=== PATIENT | female | born 1940 | race Caucasian/White ===

== ENCOUNTER → 2017-07-08 | Outpatient (CLI) | payer OTHER ==
[~2017-07-08] MED LIST: ACCUPRIL10 MG PO; ASPIR 8181 MG PO; ATORVASTATIN CA40 MG; ATORVASTATIN CA40 MG PO; BAYER BACK & B1 EACH; BAYER BACK & B1 EACH PO; EFFIENT10 MG PO; LIPITOR 20 MG T20 M1 PO; LOPRESSOR25 PO; NITROGLYCERIN0.4 MG SUBLING; RANEXA500 MG; TOPROL XL25 MG PO; ZETIA10 MG PO
== END ==
LOC: M.RAD 13:09
DX: M19.90 Unspecified osteoarthritis, unspecified site (principal); Z78.0 Asymptomatic menopausal state

== ENCOUNTER → 2018-05-10 | Outpatient (CLI) | payer OTHER ==
--- NOTE | 2018-05-10 10:45 | 2DMMODE ---
[place] [address] 2 D/M-MODE ECHOCARDIOGRAM Name: FANTASMA RICO Room: [facility]#: [id number] Admission: 05/10/18 Attend Phys: Merary Chin Discharge: Date of : 40 Date of Service: 05/10/18 1045 Report #: [id number] THIS REPORT FOR: //name// APPROVED REPORT Study performed: 05/10/2018 09:06:51 EXAM: Comprehensive 2D, Doppler, and color-flow Echocardiogram Patient Location: Out-Patient Status: routine BSA: 1.92 HR: 62 bpm BP: 130/80 mmHg Other Information Study Quality: Good Indications CAD Hypertension/HDD 2D Dimensions IVSd: 10.40 (7-11mm) LVOT Diam: 20.29 (18-24mm) LVDd: 42.29 mm PWd: 9.81 (7-11mm) Ascending Ao: 28.68 (22-36mm) LVDs: 23.65 (25-40mm) Aortic Root: 29.84 mm Volumes Left Atrial Volume (Systole) LA ESV Index: 10.60 mL/m2 Aortic Valve AoV Peak Mandeep.: 1.54 m/s AO Peak Gr.: 9.49 mmHg LVOT Max P.79 mmHg AO Mean Gr.: 4.64 mmHg LVOT Mean P.55 mmHg LVOT Max V: 1.20 m/s AO V2 VTI: 30.08 cm LVOT Mean V: 0.71 m/s KEN (VTI): 2.88 cm2 LVOT V1 VTI: 26.83 cm Mitral Valve E/A Ratio: 0.81 MV Decel. Time: 217.55 ms MV E Max Mandeep.: 0.72 m/[place] [address] 2 D/M-MODE ECHOCARDIOGRAM Name: FANTASMA RICO Room: [facility]#: [id number] Admission: 05/10/18 Attend Phys: Merary Chin Discharge: Date of : 40 Date of Service: 05/10/18 1045 Report #: [id number] MV PHT: 63.09 ms MVA (PHT): 3.49 cm2 TDI E/Lateral E': 12.00 E/Medial E': 9.00 Medial E' Mandeep.: 0.08 m/s Lateral E' Mandeep.: 0.06 m/s Pulmonary Valve PV Peak Mandeep.: 0.91 m/s PV Peak Gr.: 3.29 mmHg Tricuspid Valve RAP Estimate: 5.00 mmHg TR Peak Gr.: 18.83 mmHg RVSP: 23.83 mmHg PA Pressure: 23.83 mmHg Left Ventricle The left ventricle is normal size. There is normal LV segmental wall motion. There is normal left ventricular wall thickness. Left ventricular systolic function is normal. The left ventricular ejection fraction is within the normal range. LVEF is 55-60%. Grade I - abnormal relaxation pattern. Right Ventricle The right ventricle is normal size. The right ventricular systolic function is normal. Atria The left atrium size is normal. The right atrium size is normal. Aortic Valve The aortic valve is normal in structure. No aortic regurgitation is present. There is no aortic valvular stenosis. Mitral Valve There is mild mitral annular calcification. There is no mitral valve regurgitation noted. No evidence of mitral valve stenosis. Tricuspid Valve The tricuspid valve is normal in structure. Mild tricuspid regurgitation. Pulmonic Valve The pulmonary valve is normal in structure. Mild [place] [address] 2 D/M-MODE ECHOCARDIOGRAM Name: FANTASMA RICO Room: [facility]#: [id number] Admission: 05/10/18 Attend Phys: Merary Chin Discharge: Date of : 40 Date of Service: 05/10/18 1045 Report #: [id number] Great Vessels The aortic root is normal in size. IVC is normal in size and collapses >50% with inspiration. Pericardium There is no pericardial effusion. <Conclusion> LVEF is 55-60%. <ELECTRONICALLY SIGNED> By: Pillo Egan MD, FACC 05/10/18 1045 44 Pillo Egan MD, FACC /INF
== END ==
LOC: M.CRD 08:42
DX: I37.1 Nonrheumatic pulmonary valve insufficiency (principal); I07.1 Rheumatic tricuspid insufficiency; I34.8 Other nonrheumatic mitral valve disorders; I10 Essential (primary) hypertension; I25.10 Atherosclerotic heart disease of native coronary artery without angina pectoris

== ENCOUNTER 2018-06-10 12:44 | Emergency (ER) | payer OTHER ==
[~2018-06-10] VITALS: Ht 167.6 cm; Wt 83.9 kg
[2018-06-10] MEDS ORDERED: ISOSORBIDE DINI30 MG PO (13:30)
[2018-06-10] MEDS ORDERED: PLAVIX 75 MG TA75 M1 PO (13:31)
[2018-06-10 13:42] LABS: ABSOLUTE BASOPHILS 0.1 thou/uL (0.0-0.2); ABSOLUTE EOSINOPHILS 0.1 thou/uL (0.0-0.7); ABSOLUTE LYMPHOCYTES 1.4 thou/uL (0.8-5.3); ABSOLUTE MONOCYTES 0.4 thou/uL (0.0-1.2); ABSOLUTE NEUTROPHILS 4.7 thou/uL (1.6-8.1); BASOPHILS 0.9 %; EOSINOPHILS 1.2 %; HEMATOCRIT 42.6 % (37.0-47.0); HEMOGLOBIN 14.4 gm/dL (12.0-15.0); LYMPHOCYTES 20.7 %; MCH 30.8 pg (26.0-34.0); MCHC 33.9 g/dL (28.0-37.0); MCV 90.8 fL (80.0-100.0); MONOCYTES 6.1 %; MPV 7.8 fl. (7.2-11.1); NUCLEATED RBCS 0 /100WBC; PLATELET COUNT* 261 thou/uL (150-400); POLYS 71.1 %; RBC 4.68 mil/uL (4.20-5.00); RDW-CV 13.6 % (10.5-14.5); WBC 6.6 thou/uL (4.0-11.0)
[2018-06-10 13:51] LABS: ANION GAP 7 mmol/L (7-16); BUN 22 mg/dL (7-18); CALCIUM 9.1 mg/dL (8.5-10.1); CHLORIDE 106 mmol/L (98-107); CO2 30 mmol/L (21-32); CREATININE 1.3 mg/dL (0.6-1.3); GLUCOSE 131 mg/dL (70-99); SODIUM 143 mmol/L (136-145)
[2018-06-10 13:54] LABS: APTT 25.9 Seconds (25.0-31.3); PROTIME 10.2 Seconds (9.20-11.50)
[2018-06-10 14:02] LABS: ALKALINE PHOSPHATASE 103 U/L (46-116); LIPASE 228 U/L (73-393); NT-PRO BRAIN NAT PEPTIDE 156 pg/mL (<300); SGOT 16 U/L (15-37); SGPT 16 U/L (30-65); TOTAL BILIRUBIN 0.2 mg/dL (<0.1-1.0); TOTAL PROTEIN 8.1 g/dL (6.4-8.2); TROPONIN-I LEVEL <0.06 ng/mL (<0.06)
--- NOTE | 2018-06-10 15:03 | EKG ---
[place] [address] ELECTROCARDIOGRAM REPORT Name: TRISHAFANTASMA HANSA Room: [facility]#: [id number] Admission: 06/10/18 Attend Phys: Discharge: Date of : 40 Report #: [id number] THIS REPORT FOR: //name// [facility] ED Test Date: 2018-06-10 Test Time: 12:51:32 Pat Name: FANTASMA RICO Department: Room: Gender: F Body Joiner: Shira RAJAN : 1940 Requested By: Verona Goodwin Order Number: [id number] MD: Chapo Ferreira Measurements Intervals [place] Rate: 73 P: 43 LA: 161 QRS: 25 QRSD: 87 T: 16 QT: 375 QTc: 414 Interpretive Statements Sinus rhythm Compared to ECG 08/02/2016 03:07:40 No significant changes Electronically Signed On 06-10-2018 15:02:54 FLEET SERVICE CLERK by Chapo Ferreira [email or web address] <ELECTRONICALLY SIGNED> By: Chapo Ferreira MD, [facility] 06/10/18 1502 125 125 Chapo Ferreira MD, FACC /EPI
[2018-06-10 16:05] VITALS: BP 131/65
== END 2018-06-10 16:06 | disposition home or self-care (01) ==
LOC: M.ERS 12:44
PROVIDERS: Personal Emergency Response Attendant
DX: I20.8 Other forms of angina pectoris (principal); F90.9 Attention-deficit hyperactivity disorder, unspecified type; Z90.710 Acquired absence of both cervix and uterus; Z90.49 Acquired absence of other specified parts of digestive tract; Z95.5 Presence of coronary angioplasty implant and graft; Z88.1 Allergy status to other antibiotic agents; Z88.8 Allergy status to other drugs, medicaments and biological substances

== ENCOUNTER 2018-06-14 09:12 | Observation (INO) | payer OTHER ==
[~2018-06-14] VITALS: Ht 152.4 cm; Wt 84.4 kg
--- NOTE | ~2018-06-14 | H ---
[address] [address] HISTORY AND PHYSICAL Name: FANTASMA RICO Room: [address] Alpesh Gottlieb#: [id number] Admission: 06/14/18 Attend Phys: Loco Grande MD, Discharge: 06/15/18 Date of : 40 Report #: [id number] THIS REPORT FOR: //name// Please refer to the History and Physical performed in the physician's office. By: 1244Medical Records Staff [place] /DOUG
[2018-06-14 08:00] VITALS: BP 132/60
[~2018-06-14 09:12] MED LIST changes: -BAYER BACK & B1 EACH; +ISOSORBIDE DINI30 MG PO; +PLAVIX 75 MG TA75 M1 PO
[2018-06-14 09:39] VITALS: BP 149/66
[2018-06-14 10:32] LABS: ANION GAP 9 mmol/L (7-16); BUN 25 mg/dL (7-18); CHLORIDE 107 mmol/L (98-107); CO2 26 mmol/L (21-32); CREATININE 1.3 mg/dL (0.6-1.3); GLUCOSE 94 mg/dL (70-99); SODIUM 142 mmol/L (136-145)
[2018-06-14 10:34] LABS: APTT 26.1 Seconds (25.0-31.3); PROTIME 10.5 Seconds (9.20-11.50)
[2018-06-14 10:36] LABS: ALBUMIN 3.7 g/dL (3.4-5.0); ALKALINE PHOSPHATASE 88 U/L (46-116); CHOLESTEROL 167 mg/dL (<200); HDL CHOLESTEROL 45 mg/dL (>40); LDL CHOLESTEROL 103 mg/dL (<100); SGPT 15 U/L (30-65); TC:HDL 3.7 Ratio (Not establshd); TOTAL BILIRUBIN 0.3 mg/dL (<0.1-1.0); TOTAL PROTEIN 7.5 g/dL (6.4-8.2); TRIGLYCERIDE 95 mg/dL (<150); VLDL 19 mg/dL (<40)
[2018-06-14 10:37] LABS: POTASSIUM 4.9 mmol/L (3.5-5.1); SERUM ASSESSMENT Clear; SGOT 22 U/L (15-37)
--- NOTE | 2018-06-14 15:35 | CARD ---
[address] [address] CARDIAC CATH REPORT Name: FANTASMA RICO Room: [address] Alpesh Gottlieb#: [id number] Admission: 06/14/18 Attend Phys: Loco Grande MD, Discharge: Date of : 40 Report #: [id number] THIS REPORT FOR: //name// APPROVED REPORT Study performed: 06/14/2018 10:58:57 Patient Details The patient is a 77 year-old female Event Personnel Vashti Riggs RN, Loco Grande Academic Advisement Director, Sana Reyes Monitor, Hay Rendon (Ryan) Kristel Baron Tina RN Nut Sorter, Adithya Chou Monitor Procedures Performed Left heart catheterization left ventriculography selective coronary arteriography and percutaneous coronary intervention to the proximal circumflex Indication Unstable angina Risk Factors Hypercholesterolemia, Hypertension Previous Procedures/Diagnoses Previous PCI Admission/Lab Medications/Medications given during procedure Aspirin, Platelet Aff. Inhib., Angiomax bolus and infusion Procedure Narrative The patient was brought electively to the Cardiac Catheterization Laboratory and was prepped and draped in a sterile manner. The right femoral was infiltrated with 2% Lidocaine subcutaneous anesthesia. A [place] 6 FR sheath was inserted into the . Coronary angiography was performed using coronary diagnostic catheters. The right coronary system was accessed and visualized with a Diagnostic - JR4 catheter. The left coronary system was accessed and visualized with a Diagnostic - JL4 catheter. The left ventricle was accessed and visualized with a Diagnostic - PIG catheter. Left ventricular/Aortic Valve gradient assessed via catheter pullback. Pre-demployment femoral angiogram was performed . Closure device [place] [address] CARDIAC CATH REPORT Name: TRISHAFANTASMA HANSA Room: [address] Alpesh Gottlieb#: [id number] Admission: 06/14/18 Attend Phys: Loco Grande MD, Discharge: Date of : 40 Report #: [id number] Angioseal STS 6Fr. The patient tolerated the procedure well and there were no complications associated with the procedure. There was no hematoma. Intraoperative Conscious Sedation Sedation start time: 1136 Case end Time: 1229 Fentanyl 25 mcg Versed 2 mg Fluoro Time: 8.4 minutes Dose: DAP [id number] cGycm2 1612 mGy Coronary Angiography The patient's coronary anatomy is right dominant. Diagnostic Cath Left Main 40 Percent distal narrowing LAD Widely patent proximal LAD and first diagonal stenosis with 30% mid LAD narrowing Circumflex 80% ostial and proximal circumflex stenosis with calcification Right Coronary Dominant vessel with 30% mid vessel narrowing Left Ventriculography The left ventricle is normal in size with normal contractility. The left ventricular ejection fraction is estimated to be 65%. Left ventricular wall motion abnormalities are not present. There is no mitral insufficiency. Hemodynamics The aortic pressure is 144/60 mmHg with a mean of 94 mmHg. The left ventricular pressure is 147/4 mmHg with a mean of mmHg. The left ventricular end diastolic pressure is 17 mmHg. There was no gradient across the aortic valve upon pullback. PCI Technique Lesion Anticoagulation was achieved with Angiomax. Patient was preloaded with Angiomax IV 13 mg per kg. Percutaneous coronary intervention was performed on the proximal circumflex artery segment. The lesion stenosis prior to intervention was 80% with TIFFANIE 3 flow. A 6F XB LAD 3.5 Guide Catheter was used to engage the ostium. A IG: BMW 190cm Interventional Guidewire was used to cross the lesion. BALLOON DILATION A Balloon catheter Trek RX 2.5 X 12 was inserted and inflated up to 8.00atm for 10seconds. Additional Inflation: 10.00atm [place] [address] CARDIAC CATH REPORT Name: FANTASMA RICO HANSA Room: [address]#: [id number] Admission: 06/14/18 Attend Phys: Loco Grande MD, Discharge: Date of : 40 Report #: [id number] 15seconds. STENT DEPLOYMENT A stent Xience Zaira 2.5X18mm was inserted and inflated up to 10.00atm for 11seconds. Additional Inflation: 14.00atm for 7seconds. Additional Inflation: 16.00atm for 10seconds. Final angiography reveals 0 % stenosis with TIFFANIE 3 flow. Conclusion #1 significant coronary artery disease characterized by the following: A 40% distal left main coronary artery narrowing B widely patent proximal LAD and first diagonal stents with 30% mid LAD narrowing C prominent though nondominant circumflex with 80% tubular calcified proximal stenosis D dominant right coronary artery 30% mid vessel narrowing #2 normal left ventricular systolic function, estimated ejection fraction being 65% #3 modest elevation of left ventricular end-diastolic pressure at rest #4 successful percutaneous coronary intervention with deployment of a drug-eluting stent at the site of 80% proximal circumflex stenosis with 0% residual narrowing and TIFFANIE-3 flow the distal vessel Recommendations Cardiac Risk Reduction Program Aggressive Medical Therapy Medications Administered Aspirin (any) [place] [address] CARDIAC CATH REPORT Name: FANTASMA RICO HANSA Room: [address] Bull#: [id number] Admission: 06/14/18 Attend Phys: Loco Grande MD, Discharge: Date of : 40 Report #: [id number] Diagnostic Cath Approved by: Loco Grande MD Date/Time: 06/14/2018 15:34:39 <ELECTRONICALLY SIGNED> By: Loco Grande MD, [facility] 06/14/18 1535 1535 1535John Deb Grande MD, FACC /INF
[2018-06-14 16:00] VITALS: BP 138/63
--- NOTE | 2018-06-14 16:32 | EKG ---
[place] [address] ELECTROCARDIOGRAM REPORT Name: TRISHAFANTASMA JOY Room: [address] M.R.#: [id number] Admission: 06/14/18 Attend Phys: Loco Grande MD, Discharge: Date of : 40 Report #: [id number] THIS REPORT FOR: //name// [facility] Test Date: 2018-06-14 Test Time: 10:03:42 Pat Name: FANTASMA RICO Department: Room: [facility] Gender: F Head Refrigeration Engineer: BRANDAN : 1940 Requested By: Loco Grande Order Number: [id number] Teri MD: Loco Grande Measurements Intervals [place] Rate: 61 P: 35 DC: 168 QRS: 20 QRSD: 87 T: 16 QT: 399 QTc: 402 Interpretive Statements Sinus rhythm Compared to ECG 06/10/2018 12:51:32 No significant changes Electronically Signed On 06-14-2018 16:32:31 OFFICE SERVICES REPRESENTATIVE by Loco Grande [email or web address] <ELECTRONICALLY SIGNED> By: Loco Grande MD, [facility] 06/14/18 1632 1003 1003 Loco Grande MD, FACC /EPI
--- NOTE | 2018-06-14 16:33 | EKG ---
[place] [address] ELECTROCARDIOGRAM REPORT Name: FANTASMA RICO Room: [address] M.R.#: [id number] Admission: 06/14/18 Attend Phys: Loco Grande MD, Discharge: Date of : 40 Report #: [id number] THIS REPORT FOR: //name// [facility] Test Date: 2018-06-14 Test Time: 13:34:35 Pat Name: FANTASMA RICO Department: Room: [facility] Gender: F Desizing Machine Back Tender: : 1940 Requested By: Loco Grande Order Number: [id number] Teri MD: Loco Grande Measurements Intervals [place] Rate: 64 P: 40 GA: 177 QRS: 33 QRSD: 91 T: 13 QT: 400 QTc: 413 Interpretive Statements Sinus rhythm Compared to ECG 06/10/2018 12:51:32 No significant changes Electronically Signed On 06-14-2018 16:33:27 BRANCH ASSOCIATE by Loco Grande [email or web address] <ELECTRONICALLY SIGNED> By: Loco Grande MD, [facility] 06/14/18 1633 1334 33 Loco Grande MD, FACC /EPI
[2018-06-14 16:47] VITALS: BP 149/66
[2018-06-14] MEDS ORDERED: IMDUR 30 MG TAB30 M1 PO (19:34)
[2018-06-14] MEDS ORDERED: VITAMIN D3400 UNIT PO (19:36)
[2018-06-14 20:00] VITALS: BP 132/60
[2018-06-14 23:49] VITALS: BP 123/51
[2018-06-15] VITALS (7 sets, daily range): BP systolic 119–149; BP diastolic 59–66
--- NOTE | 2018-06-15 05:12 | NUR ---
ASSUMED PT CARE @1930. ALERT AND ORIENTED X4. VSS. AUDIT MACHINE OPERATOR IN PLACE, TRACING SR. COMPLAINED OF 5/10 BACK PAIN THAT WAS RELIEVED BY TYLENOL AND REPOSITIONING. POST CATH SITE INTACT AND DRY. SAYS CHEST FEELS A LITTLE TENDER. WAS MOSTLY ASLEEP THROUGH OUT THE NIGHT. CALL LIGHT IN PLACE. HOURLY ROUNDING DONE FOR SAFETY.
[2018-06-15 05:16] LABS: HEMATOCRIT 36.6 % (37.0-47.0); HEMOGLOBIN 12.4 gm/dL (12.0-15.0); MCH 31.4 pg (26.0-34.0); MCHC 33.9 g/dL (28.0-37.0); MCV 92.4 fL (80.0-100.0); MPV 7.9 fl. (7.2-11.1); RBC 3.96 mil/uL (4.20-5.00); RDW-CV 13.4 % (10.5-14.5)
[2018-06-15 05:37] LABS: ALBUMIN 3.2 g/dL (3.4-5.0); CALCIUM 8.3 mg/dL (8.5-10.1); CREATININE 1.2 mg/dL (0.6-1.3); POTASSIUM 4.4 mmol/L (3.5-5.1); TOTAL BILIRUBIN 0.4 mg/dL (<0.1-1.0); TOTAL PROTEIN 5.9 g/dL (6.4-8.2); TROPONIN-I LEVEL 0.26 ng/mL (<0.06)
--- NOTE | 2018-06-15 10:42 | NUR ---
ASSUMED PT CARE REPORT RECEIVED FROM NURSE ;VSS. NO COMPLAINT. IV FLUID STOPPED ORDERED. PT READY FOR DC DC INSTRUCTIONS GIVEN. PT NOW IN SHOWER. PT OWN MEDICATIONS GIVEN BACK TO PT. LOPRESSOR AND LISINOPRIL GIVEN THIS AM AAS ORDERED. WILL DC AFTER SHOWER.
--- NOTE | 2018-06-15 17:00 | EKG ---
[place] [address] ELECTROCARDIOGRAM REPORT Name: FANTASMA RICO Room: [address] M.R.#: [id number] Admission: 06/14/18 Attend Phys: Loco Grande MD, Discharge: 06/15/18 Date of : 40 Report #: [id number] THIS REPORT FOR: //name// [facility] Test Date: 2018-06-15 Test Time: 03:17:30 Pat Name: FANTASMA RICO Department: Room: [facility] Gender: F Web Site Manager: JCRUZ : 1940 Requested By: Loco Grande Order Number: [id number] Teri MD: Familia Gomes Measurements Intervals [place] Rate: 62 P: 32 [place]: 173 QRS: 24 QRSD: 89 T: 22 QT: 405 QTc: 412 Interpretive Statements Sinus rhythm Compared to ECG 06/14/2018 13:34:35 No significant changes Electronically Signed On 06-15-2018 17:00:18 ANIMAL HOSPITAL CLERK by Familia Gomes [email or web address] <ELECTRONICALLY SIGNED> By: Familia Gomes MD, [facility] 06/15/18 1700 6 Familia Gomes MD, FAC /EPI
--- NOTE | 2018-06-17 16:57 | D ---
[address] [address] DISCHARGE SUMMARY Name: TRISHAFANTASMA HANSA Room: [address] Alpesh Gottlieb#: [id number] Admission: 06/14/18 Attend Phys: Loco Grande MD, Discharge: 06/15/18 Date of : 40 Report #: [id number] THIS REPORT FOR: //name// CC: Loco Lindsay koreyurssell DATE OF SERVICE: 06/15/2018 FINAL DISCHARGE DIAGNOSES: 1. Unstable angina. 2. Coronary artery disease. 3. Status post percutaneous coronary intervention with stenting of the circumflex. 4. Hypertension. 5. Hyperlipoproteinemia. PROCEDURES: 06/14/2018 -- left heart catheterization, left ventriculography, selective coronary arteriography and percutaneous coronary intervention of the proximal circumflex. HOSPITAL COURSE: The patient is a very pleasant 77-year-old female with history of coronary artery disease, status post prior stenting of the LAD and prominent diagonal. Recently, she has noted recrudescence of chest pain, similar to her prior ischemic syndrome, following an unstable pattern. This has responded somewhat to an increase in Imdur to 60 mg daily. She has underlying hypertension, hyperlipoproteinemia. In this context, I performed recatheterization on 06/14/2018, which revealed 40% distal left main coronary artery narrowing with 80% calcified ostial tubular proximal circumflex stenosis with widely patent proximal LAD and first diagonal stents. Given this data, I elected to proceed with percutaneous coronary intervention, and deployed one drug-eluting stent in the proximal circumflex with 0% residual narrowing after deployment of a 2.5 x 18 mm Xience Zaira drug-eluting stent in the proximal circumflex. The patient did well post-procedurally and there was good hemostasis at the right femoral site of catheterization. Laboratory on 06/15/2018 revealed sodium 143, potassium 4.4, BUN 20, creatinine 1.2 down from 1.3 preprocedurally. Random glucose 140 mg percent. White blood cell count 5000; hemoglobin 12.4; platelet count 166,000. Troponin in consequence was elevated at 0.26. Cholesterol 167, HDL 45, LDL 103, triglycerides 95 mg percent. The patient is discharged to home in stable condition on the following medications: Aspirin, which she takes with caffeine [address] [place] [address] DISCHARGE SUMMARY Name: TRISHAFANTASMAJESICA SANTO [address]: [address] [id number] Admission: 06/14/18 Attend Phys: Loco Grande MD, Discharge: 06/15/18 Date of : 40 Report #: [id number] cholecalciferol 125 mcg daily, clopidogrel 75 mg daily with 600 mg rebekah-procedural dose, Zetia 10 mg daily, isosorbide mononitrate 30 mg daily, metoprolol succinate 25 mg b.i.d., quinapril 10 mg daily and p.r.n. sublingual nitroglycerin. The patient is scheduled to return to see my nurse practitioner, Silva Guillen, on 06/22/2018 at 1000 hours and myself on 07/21/2018 at 1500 hours at the [facility] office. Thus, the patient is discharged to home in stable condition on the aforementioned medications with followup as iterated above. <ELECTRONICALLY SIGNED> By: Loco Grande MD, FACC 06/17/18 1657 1241 1312Jorubio Grande MD, FACC /nt
== END 2018-06-15 11:20 | disposition home or self-care (01) ==
LOC: M.CL 09:12 → M.TBA-CV 12:43 → M.2W 12:43
PROVIDERS: ADMIT Internal Medicine
DX: I25.110 Atherosclerotic heart disease of native coronary artery with unstable angina pectoris (principal); E78.6 Lipoprotein deficiency; E78.00 Pure hypercholesterolemia, unspecified; I10 Essential (primary) hypertension; Z79.899 Other long term (current) drug therapy

== ENCOUNTER → 2019-07-19 | Outpatient (CLI) | payer OTHER ==
[~2019-07-19] MED LIST changes: +IMDUR 30 MG TAB30 M1 PO; +VITAMIN D3400 UNIT PO
--- NOTE | 2019-07-19 18:13 | CARDNUC ---
[place] [address] CARDIAC NUCLEAR IMAGING REPORT Name: FANTASMA RICO Room: [facility]#: [id number] Admission: 07/19/19 Attend Phys: Merary Chin Discharge: Date of : 40 Date of Service: 07/19/191811 Report #: [id number] THIS REPORT FOR: cc: Neftali Renteria Steve T. DO Liston, Michael J. MD [facility] ~ APPROVED REPORT Study performed: 07/19/2019 09:59:55 Exam: Nuclear Stress Test Indication: Angina, RDZ. Patient Location: Out-Patient Stress Tech: Saira Joya Stress Nurse: Familia Romero Tech:EZ Gallo Ht: 5 ft 6 in Wt: 187 lbs BSA: 1.94 m2 BMI: 30.17 Medical History Medical History: Angina, CAD s/p stent, Fatigue, HTN, SOB, Hip pain, unstable gait. Medications: ASA 500 Mg, Clopidogrel, Zetia, Metoprolol, NTG, Quinapril. Allergies: Atorvastatin, Ampicillin. Cardiac Risk Factors: Age, FHX of CAD, HTN, Hyperlipidemia, SOB. Previous Cardiac Procedures: PCI Pretest Chest Pain Characteristics: No chest pain Exercise History: Sedentary Physical Disabilities: Hip pain, unsteady gait, uses cane to ambulate. Meds Held (24 hrs): Metoprolol, NTG. Stress Test Details Stress Test: Pharmacologic stress testing performed using 0.4 mg of regadenoson per 5 mL given IV over 10 seconds. Reason for pharmacologic stress test: Hip pain, unsteady gait, uses cane to ambulate.. HR Resting HR: 63 bpm Max Heart Rate (APMHR): 142 bpm Max HR Achieved: 103 bpm Target HR (85% APMHR): 120 bpm % of APMHR: 72 [place] [address] CARDIAC NUCLEAR IMAGING REPORT Name: TRISHAFANTASMA HANSA Room: [facility]#: [id number] Admission: 07/19/19 Attend Phys: Merary Chin Discharge: Date of : 40 Date of Service: 07/19/19 1812 Report #: [id number] Recovery HR: 90 bpm BP Resting BP: 142/68 mmHg Max BP: 152/66 mmHg ECG Resting ECG: Sinus Rhythm, normal EKG Stress ECG: Sinus Tachycardia ST Change: nonspecific T wave flattening and inversion without ST segment changes Arrhythmia: None Recovery ECG: Sinus Rhythm Recovery ST Change: nonspecific T wave flattening and inversion without significant ST segment changes Recovery Arrhythmia: None Clinical Reason for Termination: Completed protocol Stress Symptoms: Dyspnea, Lightheaded, Headache, Sharp chest pain 2/10 radiates to back. Exercise duration: 00 min 00 sec Exercise capacity: 1.00 METs The patient tolerated Lexiscan infusion relatively well. She does note some sharp chest discomfort radiating to her back rated a 2 out of 10. Nurse Comments A 78 year old female presented using a cane to ambulate, for a sitting Lexiscan r/t occasional angina and RDZ. Test well tolerated. Recovery unremarkable with PO caffeine, effective. Patient was escorted by staff via wheelchair to Nuclear Medicine for imaging. Patient was stable and stated she felt good at that time. Stress ECG Conclusion Baseline 12-lead EKG showed sinus rhythm without significant ST segment or T-wave abnormality. EKGs obtained during and post Lexiscan infusion showed T-wave flattening and inversion in the inferolateral leads without significant ST segment changes. There were no stress-induced arrhythmias. NM EXAM: Myocardial Perfusion REST/STRESS Imaging Protocol: Rest Tc-99m/Stress Tc-99m 1 day Resting Data Rest SPECT myocardial perfusion imaging [place] [address] CARDIAC NUCLEAR IMAGING REPORT Name: FANTASMA RICO [facility] [id number] Admission: 07/19/19 Attend Phys: Merary Chin Discharge: Date of : 40 Date of Service: 07/19/19 181 Report #: [id number] position 30 minutes following the intravenous injection of 11.4 mCi of Tc-99m Sestamibi. Time of rest injection: 0830 Date: 07/19/2019 The images were gated to evaluate regional wall motion and calculate left ventricular ejection fraction. Administration Route: IV Administration Site: Right Hand Pharmacologic Stress Pharmacologic stress test was performed by injecting Regadenoson 0.4 mg IV push followed by the intravenous injection of 32.9 mCi of Tc-99m Sestamibi. Time of stress injection: 1010 Date: 07/19/2019 Administration Route: IV Administration Site: Right Hand Gated Stress SPECT was performed 40 minutes after stress injection. The images were gated to evaluate regional wall motion and calculate left ventricular ejection fraction. Prone imaging was performed. Study Quality Study: Good Artifact: No artifact Study Data At rest, the left ventricular ejection fraction was 82%.. Post stress, the left ventricular ejection was 81%.. TID = 1.17. Perfusion Perfusion images obtained at rest and post Lexiscan stress showed uniform uptake of the radioisotope throughout the myocardium without defect. Wall Motion Normal left ventricular wall motion. Nuclear Conclusion ECG Findings: negative for ischemia Clinical Findings: non-diagnostic Nuclear Findings: negative for ischemia Exercise Capacity: not assessed Left Ventricular Function: normal Risk Study: low Perfusion images show no defect to suggest [place] [address] CARDIAC NUCLEAR IMAGING REPORT Name: FANTASMA RICO [id number] Admission: 07/19/19 Attend Phys: Merary Chin Discharge: Date of : 40 Date of Service: 07/19/19 181 Report #: [id number] Gaited study showed normal LV systolic function and wall motion. This is a low risk study. <Conclusion> Baseline 12-lead EKG showed sinus rhythm without significant ST segment or T-wave abnormality. EKGs obtained during and post Lexiscan infusion showed T-wave flattening and inversion in the inferolateral leads without significant ST segment changes. There were no stress-induced arrhythmias. <ELECTRONICALLY SIGNED> By: Familia Gomes MD, FACC 07/19/191811 11 11 Familia Gomes MD, FACC /INF
== END ==
LOC: M.NUC 01-28 08:29 → M.CRD 09:00 → M.NUC 10:00
DX: I25.10 Atherosclerotic heart disease of native coronary artery without angina pectoris (principal); I10 Essential (primary) hypertension; Z79.899 Other long term (current) drug therapy; Z88.1 Allergy status to other antibiotic agents; Z98.61 Coronary angioplasty status; Z88.8 Allergy status to other drugs, medicaments and biological substances

== ENCOUNTER 2019-08-17 08:54 | Observation (INO) | payer OTHER ==
[~2019-08-17] VITALS: Ht 167.6 cm; Wt 88.5 kg
[2019-08-17] VITALS (13 sets, daily range): BP systolic 119–181; BP diastolic 45–78
[2019-08-17 09:46] LABS: HEMATOCRIT 38.9 % (37.0-47.0); HEMOGLOBIN 13.2 gm/dL (12.0-15.0); MCH 30.2 pg (26.0-34.0); MCV 88.8 fL (80.0-100.0); MPV 7.9 fl. (7.2-11.1); RBC 4.38 mil/uL (4.20-5.00); RDW-CV 14.2 % (10.5-14.5); WBC 5.1 thou/uL (4.0-11.0)
[2019-08-17 09:56] LABS: APTT 27.7 Seconds (25.0-31.3); PROTIME 10.6 Seconds (9.20-11.50)
[2019-08-17 09:59] LABS: ALBUMIN 3.9 g/dL (3.4-5.0); ALKALINE PHOSPHATASE 84 U/L (46-116); ANION GAP 8 mmol/L (7-16); BUN 20 mg/dL (7-18); CALCIUM 8.4 mg/dL (8.5-10.1); CHLORIDE 106 mmol/L (98-107); CHOLESTEROL 169 mg/dL (<200); CO2 27 mmol/L (21-32); CREATININE 1.1 mg/dL (0.6-1.3); GLUCOSE 98 mg/dL (70-99); HDL CHOLESTEROL 44 mg/dL (>40); LDL CHOLESTEROL 106 mg/dL (<100); POTASSIUM 4.2 mmol/L (3.5-5.1); SGOT 20 U/L (15-37); SGPT 18 U/L (30-65); SODIUM 141 mmol/L (136-145); TC:HDL 3.8 Ratio (Not establshd); TOTAL BILIRUBIN 0.3 mg/dL (<0.1-1.0); TOTAL PROTEIN 7.6 g/dL (6.4-8.2); TRIGLYCERIDE 97 mg/dL (<150); VLDL 19 mg/dL (<40)
[2019-08-17 10:00] LABS: SERUM ASSESSMENT Clear
--- NOTE | 2019-08-17 16:46 | EKG ---
[place] [address] ELECTROCARDIOGRAM REPORT Name: FANTASMA RICO Room: [address] M.R.#: [id number] Admission: 08/17/19 Attend Phys: Merary Chin Discharge: Date of : 40 Date of Service: 08/17/19 1047 Report #: [id number] THIS REPORT FOR: //name// [facility] Test Date: 2019-08-17 Test Time: 10:47:59 Pat Name: FANTASMA RICO Department: Room: [facility] Gender: F Beater Room Helper: KF : 1940 Requested By: Loco Grande Order Number: [id number] Teri MD: Loco Grande Measurements Intervals [place] Rate: 63 P: 20 MT: 154 QRS: 27 QRSD: 84 T: 10 QT: 408 QTc: 418 Interpretive Statements Sinus rhythm Low voltage, precordial leads Borderline T abnormalities, anterior leads Compared to ECG 06/15/2018 03:17:30 Low QRS voltage now present T-wave abnormality now present Electronically Signed On 08-17-2019 16:45:49 CDT by Loco Grande [email or web address] <ELECTRONICALLY SIGNED> By: Loco Grande MD, [facility] 08/17/19 1645 1047 1047 Loco Grande MD, [facility] /EPI
--- NOTE | 2019-08-17 16:50 | EKG ---
[place] [address] ELECTROCARDIOGRAM REPORT Name: FANTASMA RICO Room: [address] M.R.#: [id number] Admission: 08/17/19 Attend Phys: Merary Chin Discharge: Date of : 40 Date of Service: 08/17/19 1509 Report #: [id number] THIS REPORT FOR: //name// [facility] Test Date: 2019-08-17 Test Time: 15:09:48 Pat Name: FANTASMA RICO Department: Room: [facility] Gender: F [employer] Person: : 1940 Requested By: Loco Grande Order Number: [id number] Reading MD: Loco Grande Measurements Intervals [place] Rate: 62 P: 47 GA: 169 QRS: 48 QRSD: 90 T: 14 QT: 403 QTc: 410 Interpretive Statements Sinus rhythm Baseline wander in lead(s) II,III,aVL,aVF Compared to ECG 06/15/2018 03:17:30 No significant changes Electronically Signed On 08-17-2019 16:48:59 CDT by Loco Grande [email or web address] <ELECTRONICALLY SIGNED> By: Loco Grande MD, [facility] 08/17/19 1648 1509 1509 Loco Grande MD, [facility] /EPI
[2019-08-18 04:16] VITALS: BP 115/52
[2019-08-18 05:19] LABS: HEMATOCRIT 33.7 % (37.0-47.0); HEMOGLOBIN 11.5 gm/dL (12.0-15.0); MCH 30.4 pg (26.0-34.0); MCV 89.3 fL (80.0-100.0); MPV 7.9 fl. (7.2-11.1); RBC 3.78 mil/uL (4.20-5.00); RDW-CV 14.4 % (10.5-14.5); WBC 4.6 thou/uL (4.0-11.0)
[2019-08-18 05:43] LABS: ALBUMIN 3.1 g/dL (3.4-5.0); CALCIUM 8.2 mg/dL (8.5-10.1); CREATININE 1.1 mg/dL (0.6-1.3); TOTAL BILIRUBIN 0.4 mg/dL (<0.1-1.0); TOTAL PROTEIN 6.1 g/dL (6.4-8.2)
[2019-08-18 05:44] LABS: TROPONIN-I LEVEL 0.82 ng/mL (<0.06)
[2019-08-18 08:30] VITALS: BP 99/75
[2019-08-18 11:00] VITALS: BP 145/61
[2019-08-18] MEDS ORDERED: ASPIR 8181 M1 PO (12:30)
[2019-08-18 12:46] VITALS: BP 145/61
--- NOTE | 2019-08-18 16:38 | EKG ---
[place] [address] ELECTROCARDIOGRAM REPORT Name: FANTASMA RICO Room: [address] M.R.#: [id number] Admission: 08/17/19 Attend Phys: Merary Chin Discharge: 08/18/19 Date of : 40 Date of Service: 08/18/19 0826 Report #: [id number] THIS REPORT FOR: //name// [facility] Test Date: 2019-08-18 Test Time: 08:26:35 Pat Name: FANTASMA RICO Department: Room: [facility] Gender: F [employer] Superintendent: : 1940 Requested By: Loco Grande Order Number: [id number] Teri MD: Loco Grande Measurements Intervals [place] Rate: 72 P: 22 MO: 159 QRS: 26 QRSD: 86 T: 4 QT: 382 QTc: 419 Interpretive Statements Sinus rhythm Compared to ECG 08/17/2019 15:09:48 No significant changes Electronically Signed On 08-18-2019 16:36:49 CDT by Loco Grande [email or web address] <ELECTRONICALLY SIGNED> By: Loco Grande MD, [facility] 08/18/19 1636 5 5 Loco Grande MD, [facility] /EPI
--- NOTE | 2019-08-19 16:40 | D ---
[address] [address] DISCHARGE SUMMARY Name: FANTASMA RICO Room: [address] Alpesh Gottlieb#: [id number] Admission: 08/17/19 Attend Phys: Loco Grande MD, Discharge: 08/18/19 Date of : 40 Report #: [id number] THIS REPORT FOR: //name// cc: Neftali Renteria Steve T. DO ~ THIS REPORT FOR: //name// CC: Loco Renteria DATE OF SERVICE: 08/18/2019 FINAL DISCHARGE DIAGNOSES: 1. Unstable angina. 2. Coronary artery disease, status post percutaneous coronary intervention. 3. Hyperlipidemia. 4. Obesity. PROCEDURES: 08/17/2019 -- left heart catheterization, selective coronary arteriography and percutaneous coronary intervention of the LAD. HOSPITAL COURSE: The patient is a very pleasant 78-year-old female with a history of coronary artery disease, status post prior stenting of the LAD and diagonal. Recently, she has noted recrudescence of chest pain similar to her prior angina following a pattern of increasing frequency and severity and thus compatible with unstable angina. This is in the context of hyperlipidemia and modest weight excess. She has been compliant with lisinopril, Imdur, aspirin, Plavix, metoprolol and sublingual nitrates, which she has required increasing use. In this context, the patient underwent cardiac catheterization on 08/17/2019 which revealed 80% mid LAD in-stent restenosis and 30% narrowing at the end of a previously deployed diagonal stent. There were no significant stenosis of the right coronary artery and circumflex. I performed angioplasty, arthrotomy/atherectomy and stenting of the mid LAD with 10% residual narrowing and TIFFANIE-3 flow of the distal vessel. Troponin nichelle minimally to 0.82. The patient did well post-procedurally and there was good hemostasis at the right femoral site of catheterization. DISCHARGE MEDICATIONS: The patient was discharged to home on the following medications: Aspirin 81 mg daily, Plavix 75 mg daily, isosorbide mononitrate 30 mg daily, metoprolol succinate 25 mg b.i.d., quinapril 10 mg daily, and p.r.n. sublingual nitroglycerin. She is scheduled to return to see my nurse practitioner in 7-10 days and myself in 6-[place] [address] DISCHARGE SUMMARY Name: FANTASMA RICO Room: [address] Alpesh Gottlieb#: [id number] Admission: 08/17/19 Attend Phys: Loco Grande MD, Discharge: 08/18/19 Date of : 40 Report #: [id number] Therefore, the patient is discharged to home in stable condition on the aforementioned medications with followup as described above. <ELECTRONICALLY SIGNED> By: Loco Grande MD, [facility] 08/19/19 1640 1300 [id number] Grande MD, [facility] /nt
--- NOTE | 2019-08-20 11:25 | CARD ---
[address] [address] CARDIAC CATH REPORT Name: TRISHAFANTASMAJESICA SANTO Room: [address] Alpesh Gottlieb#: [id number] Admission: 08/17/19 Attend Phys: Loco Grande MD, Discharge: 08/18/19 Date of : 40 Report #: [id number] THIS REPORT FOR: //name// cc: Neftali Renteria Steve T. DO ~ THIS REPORT FOR: //name// APPROVED REPORT Study performed: 08/17/2019 11:09:48 Patient Details Patient Status: Out-Patient Room #: The patient is a 78 year-old female Event Personnel Loco Grande Security Specialist, Etienne Soodub, Italia Neff RTR Monitor, Deepti Lockwood RN dietary aide Performed Art Access - R femoral artery, Left Heart Cath w/or w/o Coronaries, ESTEVAN w/Atherectomy Single LAD, Hemostasis w/ Angioseal Admission/Lab Medications/Medications given during procedure Oxygen Nasal cannula 2 l per min, Angiomax IV bolus 13 ml, Angiomax Drip IV 30.1 ml per hr, Aspirin PO 81 mg, Plavix PO 600 mg Procedure Narrative The patient was brought electively to the Cardiac Catheterization Laboratory and was prepped and draped in a sterile manner. The right femoral was infiltrated with 2% Lidocaine subcutaneous anesthesia. A 6F Platte sheath was inserted into the right femoral artery. Coronary angiography was performed using coronary diagnostic catheters. The right coronary system was accessed and visualized with a 6 Fr JR 4 catheter. The left coronary system was accessed and visualized with a 6 Fr JL 4 catheter. The left ventricle was accessed and visualized with a 6 Fr Pigtail catheter. Left ventricular/Aortic Valve gradient assessed via catheter pullback. Left ventriculogram was performed in RAHMAN projection. Pre-demployment femoral angiogram was performed . Closure device was deployed with a 6 Fr Angioseal STS. The patient tolerated the procedure well and there were no complications associated with the procedure. There was no hematoma. Intra[place] [address] CARDIAC CATH REPORT Name: FANTASMA RICO HANSA Room: [address] Bull#: [id number] Admission: 08/17/19 Attend Phys: Loco Grande MD, Discharge: 08/18/19 Date of : 40 Report #: [id number] Sedation start time: 12:24 Case end Time: 14:09 Fentanyl 50 mcg Versed 2 mg Fluoro Time: 33.8 minutes Dose: DAP [id number] cGycm2 3613 mGy Contrast Type and Amount: Visipaque 440 ml Coronary Angiography The patient's coronary anatomy is right dominant. Diagnostic Cath Left Main 30% distal left main coronary narrowing LAD 80% mid LAD stenosis just distal to the previously deployed stent with 30% mid first diagonal Circumflex 0% narrowing Right Coronary 30% narrowing in the midportion of this large dominant vessel Left Ventriculography The left ventricle is normal in size with normal contractility. The left ventricular ejection fraction is estimated to be 65%. Left ventricular wall motion abnormalities are not present. There is no mitral insufficiency. Hemodynamics The aortic pressure is 137/53 mmHg with a mean of 86 mmHg. The left ventricular pressure is 134/-3 mmHg with a mean of mmHg. The left ventricular end diastolic pressure is 19 mmHg. PCI Technique Lesion Anticoagulation was achieved with Angiomax. Patient was preloaded with Angiomax IV bolus 13 ml. Percutaneous coronary intervention was performed on the mid left anterior descending artery segment. The lesion stenosis prior to intervention was 80% with TIFFANIE 3 flow. A 6F XB LAD 3.5 Guide Catheter was used to engage the ostium. A ProwaterFlex 180CM Interventional Guidewire was used to cross the lesion. BALLOON DILATION A Balloon catheter NC Trek RX 2.75 X 12 was inserted and inflated up to 20.00atm for 21seconds. Additional Inflation: 18.00atm for 9seconds. NC Euphora 3.0 x 12 was inserted and inflated up to 15 andres for 15 seconds and 17 andres for 12 seconds. Angiosculpt 3.0 x 10mm was inserted and inflated up to 12 andres for 13 seconds and 14 andres for 14 seconds. A Trek RX 2.75 x 20 balloon was inserted [place] [address] CARDIAC CATH REPORT Name: FANTASMA RICO Room: [address] Alpesh Gottlieb#: [id number] Admission: 08/17/19 Attend Phys: Loco Grande MD, Discharge: 08/18/19 Date of : 40 Report #: [id number] 18 andres for 15 seconds. A NC Euphora 3.0 x 12 balloon was reinserted and inflated up to16 andres for15 seconds and 15 andres for 9 seconds. 3.0 x 10 mm angiosculpt inflated to 10-12 andres STENT DEPLOYMENT A drug-eluting stent Edward RX Stent 2.0X12mm was inserted and inflated up to 22.00atm for 15seconds. Additional Inflation: 24.00atm for 11seconds. Additional Inflation: 17.00atm for 10seconds. POST STENT DEPLOYMENT BALLOON DILATION A Balloon catheter NC Euphora 3.0x12 was inserted and inflated up to 17.00atm for 6seconds. A NC Trek 2.75 x 12 balloon was inserted and inflated up to 16 andres for 7 seconds, 18 andres for 9 seconds, and 22 andres for 12 seconds. A NC Trek 3.0 x 8 balloon was inserted and inflated up to 18 andres for 13 seconds, 20 andres for 13 seconds, 18 andres for 9 seconds, and 20 andres for 8 seconds. Final angiography reveals 10 % stenosis with TIFFANIE 3 flow. Conclusion #1 significant coronary artery disease characterized by the following: A 80% mid LAD stenosis just distal to the previously deployed stent with 30% mid first diagonal narrowing B 30% distal left main coronary artery narrowing C 30% narrowing in the midportion of the dominant right coronary artery #2 normal left ventricular systolic function, estimate ejection fraction being 65% #3 moderate elevation of left ventricular end-diastolic pressure at rest #4 successful angioplasty atherotomy/atherectomy and stenting of the mid LAD with 10% residual narrowing following stent deployment and TIFFANIE-3 flow to the distal vessel Recommendations Cardiac Risk Reduction Program [facility] [place] [address] CARDIAC CATH REPORT Name: FANTASMA RICO Room: [address] Alpesh Gottlieb#: [id number] Admission: 08/17/19 Attend Phys: Loco Grande MD, Discharge: 08/18/19 Date of : 40 Report #: [id number] Medications Administered Aspirin (any) Ticagrelor Diagnostic Cath Approved by: Loco Grande MD Date/Time: 08/20/2019 11:23:17 <ELECTRONICALLY SIGNED> By: Loco Grande MD, [facility] 08/20/19 1124 1124 1124Loco Grande MD, FACC /INF
== END 2019-08-18 13:55 | disposition home or self-care (01) ==
LOC: M.CL 08:54 → M.2W 14:30 → M.TBA-CV 14:30 → M.2W 15:07
PROVIDERS: ADMIT Internal Medicine
DX: I25.110 Atherosclerotic heart disease of native coronary artery with unstable angina pectoris (principal); E78.5 Hyperlipidemia, unspecified; E66.9 Obesity, unspecified; N95.1 Menopausal and female climacteric states; M41.34 Thoracogenic scoliosis, thoracic region

== ENCOUNTER → 2021-01-21 | Outpatient (CLI) | payer OTHER ==
[~2021-01-21] MED LIST changes: +ASPIR 8181 M1 PO
--- NOTE | 2021-01-21 15:52 | 2DMMODE ---
[place] [address] 2 D/M-MODE ECHOCARDIOGRAM Name: TRISHAFANTASMA Room: [facility]#: [id number] Admission: 01/21/21 Attend Phys: Patricia Matt, Discharge: Date of : 40 Date of Service: 01/21/21 1552 Report #: [id number] THIS REPORT FOR: cc: Neftali Renteria,Neftali Bernard,Pillo Alejo MD [facility] ~ APPROVED REPORT Study performed: 01/21/2021 09:54:18 EXAM: Comprehensive 2D, Doppler, and color-flow Echocardiogram Patient Location: Out-Patient BSA: 1.99 HR: 65 bpm BP: 148/78 mmHg Other Information Study Quality: Good Indications Dyspnea 2D Dimensions IVSd: 10.45 (7-11mm) LVOT Diam: 20.31 (18-24mm) LVDd: 45.35 mm PWd: 9.43 (7-11mm) Ascending Ao: 26.64 (22-36mm) LVDs: 30.92 (25-40mm) Aortic Root: 22.56 mm Volumes Left Atrial Volume (Systole) LA ESV Index: 14.50 mL/m2 Aortic Valve AoV Peak Mandeep.: 1.51 m/s AO Peak Gr.: 9.11 mmHg LVOT Max P.53 mmHg AO Mean Gr.: 5.12 mmHg LVOT Mean P.28 mmHg LVOT Max V: 1.18 m/s AO V2 VTI: 33.98 cm LVOT Mean V: 0.67 m/s KEN (VTI): 2.55 cm2 LVOT V1 VTI: 26.75 cm Mitral Valve E/A Ratio: 0.87 [place] [address] 2 D/M-MODE ECHOCARDIOGRAM Name: FANTASMA RICO Room: [facility]#: [id number] Admission: 01/21/21 Attend Phys: Patricia Matt, Discharge: Date of : 40 Date of Service: 01/21/21 1552 Report #: [id number] MV Decel. Time: 196.83 ms MV E Max Mandeep.: 0.77 m/s MV PHT: 57.08 ms MVA (PHT): 3.85 cm2 TDI E/Lateral E': 11.00 E/Medial E': 7.70 Medial E' Mandeep.: 0.10 m/s Lateral E' Mandeep.: 0.07 m/s Pulmonary Valve PV Peak Mandeep.: 0.87 m/s PV Peak Gr.: 3.03 mmHg Tricuspid Valve RAP Estimate: 5.00 mmHg TR Peak Gr.: 17.47 mmHg RVSP: 22.47 mmHg PA Pressure: 22.47 mmHg Left Ventricle The left ventricle is normal size. There is normal LV segmental wall motion. There is normal left ventricular wall thickness. Left ventricular systolic function is normal. The left ventricular ejection fraction is within the normal range. LVEF is 60-65%. Grade I - abnormal relaxation pattern. Right Ventricle The right ventricle is normal size. The right ventricular systolic function is normal. Atria The left atrium size is normal. The right atrium size is normal. Aortic Valve Mild aortic valve sclerosis. Mild aortic regurgitation. There is no aortic valvular stenosis. Mitral Valve Mild mitral annular calcification. Mild mitral regurgitation. No evidence of mitral valve stenosis. Tricuspid Valve The tricuspid valve is normal in structure. Mild tricuspid regurgitation[place] [address] 2 D/M-MODE ECHOCARDIOGRAM Name: FANTASMA RICO Room: [facility]#: [id number] Admission: 01/21/21 Attend Phys: Patricia Matt, Discharge: Date of : 40 Date of Service: 01/21/21 1552 Report #: [id number] Pulmonic valve is not well visualized. Mild pulmonic regurgitation. Great Vessels The aortic root is normal in size. IVC is normal in size and collapses >50% with inspiration. Pericardium There is no pericardial effusion. <Conclusion> LVEF is 60-65%. Mild aortic valve sclerosis. Mild mitral regurgitation. <ELECTRONICALLY SIGNED> By: Pillo Egan MD, [facility] 01/21/21 [phone] Pillo Egan MD, FAC /INF
== END ==
LOC: M.CRD 09:53
PROVIDERS: ATTEND Nurse Practitioner
DX: I08.8 Other rheumatic multiple valve diseases (principal); R06.02 Shortness of breath; R55 Syncope and collapse